=== PATIENT | female | born 1945 | race Native Hawaiian/Other Pacific Islander ===

== ENCOUNTER 2017-06-27 13:23 | Emergency (ER) | payer OTHER ==
[2017-06-27 14:18] LABS: BASO % 0.3 % (0.0-2.0); EOS % 0.3 % (0.0-4.0); LYMPH # 0.8 K/uL (1.0-4.3); MEAN CELL VOLUME 103.3 fl (81.0-99.0); MEAN CORPUSCULAR HEMOGLOBIN 34.9 pg (27.0-31.0); MEAN CORPUSCULAR HGB CONC 33.8 g/dL (33.0-37.0); MEAN PLATELET VOLUME 8.9 fl (7.2-11.7); MONO % 1.4 % (0.0-10.0); NEUT # 0.3 K/uL (1.8-7.0); NRBC % 0.7 % (0.0-0.0); RBC 1.24 Mil/uL (3.80-5.20); RED CELL DISTRIBUTION WIDTH 17.2 % (11.5-14.5)
[2017-06-27 14:25] LABS: HEMOGLOBIN 4.3 g/dL (12.0-16.0); WHITE BLOOD COUNT 1.1 K/uL (4.8-10.8)
[2017-06-27 14:26] LABS: ALB/GLOB RATIO 1.3 (1.0-2.1); ALBUMIN 3.5 g/dL (3.5-5.0); ALT/SGPT 55 U/L (9-52); AST/SGOT 48 U/L (14-36); BLOOD UREA NITROGEN 23 mg/dl (7-17); CALCIUM 8.4 mg/dL (8.4-10.2); GFR AFRICAN-AMERICAN > 60; GFR NON-AFRICAN AMERICAN > 60; PLATELET COUNT 10 K/uL (130-400)
[2017-06-27 14:29] LABS: INR 1.1 (0.9-1.2); PARTIAL THROMBOPLASTIN TIME 34.5 Seconds (25.6-37.1); PROTHROMBIN TIME 12.6 Seconds (9.8-13.1)
[2017-06-27 14:31] LABS: VENOUS BLOOD GAS BASE EXCESS 0.5 mmol/L (0.0-2.0); VENOUS BLOOD GAS PCO2 37 mmHg (40-60); VENOUS BLOOD GAS PO2 26 mm/Hg (30-55); VENOUS BLOOD PH 7.43 (7.32-7.43)
--- NOTE | 2017-06-27 14:34 | ED PDOC ---
HPI: CCC, URI, Sore Throat Time Seen by Provider: 06/27/17 13:44 Chief Complaint (Nursing): Abnormal Labs Chief Complaint (Provider): Abnormal Labs History Per: Patient, Family History/Exam Limitations: no limitations Onset/Duration Of Symptoms: Intermittent Episodes (x1 week) Current Symptoms Are (Timing): Still Present Additional Complaint(s): 72 year old female with medical history of hypertension, presents to the emergency department with a complaint of intermittent fevers associated with fatigue, shortness of breath with exertion and dry cough ongoing for 1 week. She denies any vomiting, bloody vomiting, bloody stools, syncope, dizziness, chest pain or prior episodes. Patient was seen yesterday at [facility] and had her blood drawn which revealed low hemoglobin count. She was called today with results and recommended to go to ED for further evaluation. Family states patient has been appearing pale and tired for a while. PMD: none provided Past Medical History Reviewed: Historical Data, Nursing Documentation, Vital Signs Vital Signs: Last Vital Signs Temp 98.8 F 06/27/17 18:47 Pulse 83 06/27/17 18:47 Resp 18 06/27/17 18:47 BP 118/64 06/27/17 18:47 Pulse Ox 98 06/27/17 18:47 - Medical History PMH: HTN - Surgical History Surgical History: No Surg Hx - Family History Family History: States: Unknown Family Hx - Living Arrangements Living Arrangements: With Family - Social History Current smoker - smoking cessation education provided: No Ex-Smoker (has not smoked in the last 12 months): No Alcohol: None Drugs: Denies - Home Medications Home Medications: Ambulatory Orders Medication Instructions Recorded Enalapril Maleate [Vasotec] 1 tab PO DAILY 06/27/17 Promethazine/Codeine 5 ml PO QID PRN 06/27/17 [Phenergan/Codeine Oral Syrup] levoFLOXacin [Levaquin] 500 mg PO DAILY 06/27/17 - Allergies Allergies/Adverse Reactions: Allergies Allergy/AdvReac Type Severity Reaction Status Date / Time No Known Allergies Allergy Verified 06/27/17 13:26 Review of Systems ROS Statement: Except As Marked, All Systems Reviewed And Found Negative Constitutional: Positive for: Fever, Malaise (fatigue) Cardiovascular: Negative for: Chest Pain Respiratory: Positive for: Cough (dry), SOB with Exertion Gastrointestinal: Negative for: Vomiting, Hematochezia, Hematemesis Neurological: Negative for: Dizziness (or syncope) Physical Exam - Reviewed Nursing Documentation Reviewed: Yes Vital Signs Reviewed: Yes - Physical Exam Appears: Positive for: Non-toxic, No Acute Distress Head Exam: Positive for: ATRAUMATIC, NORMAL INSPECTION, NORMOCEPHALIC Skin: Positive for: Pallor. Negative for: Normal Color Eye Exam: Positive for: Conjunctival injection (pale). Negative for: Normal appearance, Scleral icterus ENT: Positive for: Normal ENT Inspection. Negative for: Pharyngeal Erythema, Tonsillar Swelling Neck: Positive for: Normal Cardiovascular/Chest: Positive for: Regular Rate, Rhythm Respiratory: Positive for: Normal Breath Sounds. Negative for: Wheezing, Respiratory Distress Gastrointestinal/Abdominal: Positive for: Normal Exam, Soft. 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 Negative for: Black Stool, Blood Streaked Stool Extremity: Positive for: Normal ROM (upper/lower) Neurologic/Psych: Positive for: Alert, Oriented - Laboratory Results Result Diagrams: 06/27/17 14:04 06/27/17 14:04 - ECG O2 Sat by Pulse Oximetry: 99 (RA) Pulse Ox Interpretation: Normal Medical Decision Making Medical Decision Making: Initial Impression: Anemia; Cough with fever Differential Diagnosis: Leukemia, Pneumonia; Bronchitis; Influenza; GI bleed; R /O Sepsis Initial Plan: * Crossmatch * Type and screen * VBG * EKG * CMP * Troponin I * CBC * PTT * PT * Blood culture * Influenza A B * UA Time: 1443 --Discussed case with [facility] [employer] APN who spoke with Dr. Parker Perry, oncology. --Discussed with Dr Perry. Recommends that patient be transferred to [facility] for possible bone marrow transplant, which is not available at this hospital. --1 unit of RBC will be given in ED. Time: 1506 --Patient accepted at [facility] by Dr Benton --Stable for transfer. Clinical Impression: Pancytopenia; Severe Anemia Scribe Attestation: Documented by Rocío Dennison, acting as a scribe for Mariama Callahan MD. Provider Scribe Attestation: All medical record entries made by the Scribe were at my direction and personally dictated by me. I have reviewed the chart and agree that the record accurately reflects my personal performance of the history, physical exam, medical decision making, and the department course for this patient. I have also personally directed, reviewed, and agree with the discharge instructions and disposition. Disposition - Clinical Impression Clinical Impression: Pancytopenia, Severe anemia - Patient ED Disposition Is Patient to be Admitted: No Counseled Patient/Family Regarding: Studies Performed, Diagnosis - Disposition Disposition: Other Institution ([facility]) Disposition Time: 15:06 Condition: STABLE
--- NOTE | 2017-06-27 14:45 | RAD ---
HISTORY: cough COMPARISON: No prior. FINDINGS: LUNGS: The lungs are well inflated and clear. PLEURA: No significant pleural effusion identified, no pneumothorax apparent. CARDIOVASCULAR: Normal. OSSEOUS STRUCTURES: No significant abnormalities. VISUALIZED UPPER ABDOMEN: Normal. OTHER FINDINGS: None. IMPRESSION: No active pulmonary disease.
[2017-06-27 15:12] LABS: LYMPHOCYTE 63 % (20-50); MONOCYTE 1 % (0-10); NEUTROPHIL 35 % (42-75); REACTIVE LYMPHOCYTES 1 % (0-0); TOTAL CELLS COUNTED 100
[2017-06-27 15:13] LABS: ANISOCYTOSIS SLIGHT; HYPOCHROMIC MODERATE; PLATELET ESTIMATE DECREASED (NORMAL); TOXIC GRANULATION PRESENT
[2017-06-27 15:32] LABS: SQUAMOUS EPITHIAL 2 /hpf (0-5); URINE BACTERIA RARE (<OCC); URINE BILIRUBIN NEGATIVE (NEGATIVE); URINE BLOOD NEGATIVE (NEGATIVE); URINE CLARITY CLEAR (Clear); URINE COLOR STRAW (YELLOW); URINE GLUCOSE (UA) NEG (Normal); URINE LEUKOCYTE ESTERASE NEG Leu/uL (Negative); URINE PROTEIN NEGATIVE (NEGATIVE); URINE UROBILINOGEN 0.2-1.0 mg/dL (0.2-1.0)
[2017-06-27 17:57] VITALS: PULSE 83
[2017-06-27 18:41] VITALS: BP 118/64; RESP 18; TEMP 98.8
[2017-06-28 09:15] VITALS: O2SAT 99
--- NOTE | 2017-06-29 09:08 | CARD ---
APPROVED REPORT EKG Measurement Heart [id number] <Conclusion> Sinus rhythm with premature atrial complexes Otherwise normal ECG
== END 2017-06-27 18:47 | disposition short-term general hospital (02) ==
LOC: H.ER 13:23
DX: D61.818 Other pancytopenia (principal); D64.9 Anemia, unspecified; I10 Essential (primary) hypertension; I49.1 Atrial premature depolarization
CPT/HCPCS: 36430; 71045; 80053; 81003; 82803; 84484; 85025; 85610; 85730; 86850; 86900; 86920; 87040; 87804; 93005; 99285; P9051; P9053